=== PATIENT | female | born 1990 | race Caucasian/White ===

== ENCOUNTER → 2017-06-08 | Outpatient (CLI) | payer OTHER ==
[~2017-06-08] MED LIST: BCPILLS PO; CETI10TA84 PO; MISCCAP80 PO; MULT-506 PO
[2017-06-08 14:33] LABS: BASO % 0.4 %; BASO ABS # 0.03 K/uL (0-0.2); COMPLETE YES; EOS % 1.1 %; HEMATOCRIT 38.9 % (37-47); IG% 0.4 %; LYMPH % 24.8 %; LYMPH ABS # 1.76 K/uL (1.2-3.4); MEAN CELL VOLUME 85.1 fL (80-100); MEAN CORPUSCULAR HEMOGLOBIN 28.9 pg (25-34); MEAN CORPUSCULAR HGB CONC 33.9 g/dl (32-36); MEAN PLATELET VOLUME 10.6 fL (7.4-10.4); MONO % 8.2 %; NEUT % 65.1 %; PLATELET COUNT 281 K/uL (130-400); RED BLOOD COUNT 4.57 M/uL (4.2-5.4); WHITE BLOOD COUNT 7.11 K/uL (4.8-10.8)
[2017-06-08 15:06] LABS: ALT/SGPT 22 U/L (12-78); AST/SGOT 20 U/L (15-37); BLOOD UREA NITROGEN 20 mg/dl (7-18); BUN/CREATININE RATIO 18.2 (10-20); CARBON DIOXIDE 26 mmol/L (21-32); CHLORIDE 106 mmol/L (98-107); GLUCOSE 84 mg/dl (70-99); POTASSIUM 3.8 mmol/L (3.5-5.1); SODIUM 139 mmol/L (136-145)
[2017-06-08 15:08] LABS: ALKALINE PHOSPHATASE 58 U/L (45-117)
== END | disposition home or self-care (01) ==
LOC: C.LAB 13:15
PROVIDERS: ATTEND Nurse Practitioner Adult Health
DX: L50.8 Other urticaria (principal)

== ENCOUNTER 2017-11-09 15:01 | Emergency (ER) | payer OTHER ==
[~2017-11-09] VITALS: Ht 160 cm; Wt 61.2 kg
[2017-11-09 15:09] VITALS: TEMP 36.5; Ht 160 cm; Wt 61.2 kg
[2017-11-09] MEDS ORDERED: PRENTAB26 PO (15:42)
[2017-11-09] MEDS ORDERED: OMEG10007 PO (15:42)
[2017-11-09] MEDS ORDERED: CHOL100027 PO (15:42)
[2017-11-09] MEDS ORDERED: VENL225T27 PO (15:42)
--- NOTE | 2017-11-09 16:11 | DIAGNOSTIC IMAGING REPORT ---
R KNEE 3 VIEWS CLINICAL HISTORY: right knee pain medially COMPARISON: None. DISCUSSION: No fractures or dislocations are visualized. There are no erosive or destructive changes. IMPRESSION: Unremarkable conventional radiographic evaluation of the right knee. Electronically signed by: Ovidio Gupta M.D. 11/09/2017 4:10 PM Dictated Date/Time: 11/09/2017 4:09 PM
[2017-11-09 17:12] VITALS: BP 129/89; PULSE 76; O2SAT 98
--- NOTE | 2017-11-09 18:36 | EMERGENCY ROOM VISIT NOTE ---
ED Visit Note First contact with patient: 15:11 CHIEF COMPLAINT: knee pain HISTORY OF PRESENT ILLNESS: This 27-year-old female patient presents to the emergency department with complaints of ongoing right knee pain for the past several weeks. The patient is typically very active, and runs on a regular basis. She has had decrease in his activity because of her pain. She does not recall a distinct injury or trauma. Her discomfort is primarily along the medial aspect of the tibia. She has been wearing a brace with some improvement of symptoms. She will take Advil intermittently. The patient is employed at this facility, and standing long periods of time also exacerbates symptoms. She rates the current discomfort a 4/10. Activity worsens the pain. She has not had fever or chills. No calf tenderness. REVIEW OF SYSTEMS: A 6 system review of systems was completed with positives and pertinent negatives listed in the HPI. ALLERGIES: Doxycycline MEDICATIONS: No chronic medications PMH: Otherwise healthy SOCIAL HISTORY: Employed at this facility and lives locally PHYSICAL EXAM: Vital Signs: Reviewed Nurse's notes, vital signs stable. GENERAL : White female, no acute distress, but appears in pain, well-developed, well- nourished. MENTAL STATUS: Alert, oriented to person place and time, and cooperative. MUSCULOSKELETAL: The right knee is minimally swollen. There is no ecchymosis. There is no joint effusion present. The patient is tender along the medial joint. There is medial joint line tenderness. The patella does not subluxate, however there is crepitus. Range of motion is not limited. Strength of the quads and hamstrings is 5/5. Yazmin's is negative. Jaswinder's and Anterior Drawer tests are negative. There is no laxity with varus and valgus stressing. The foot and toes are warm and well-perfused. Dorsalis pedis pulse 2+. Sensation to pain and light touch is intact. Capillary refill less than 2 seconds. R KNEE 3 VIEWS CLINICAL HISTORY: right knee pain medially COMPARISON: None. DISCUSSION: No fractures or dislocations are visualized. There are no erosive or destructive changes. IMPRESSION: Unremarkable conventional radiographic evaluation of the right knee. EMERGENCY DEPARTMENT COURSE: Physical and history were performed. Nursing notes and EMR were reviewed. The patient has medial right knee pain with patellar crepitus. X-ray was obtained and does not show significant acute findings. 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 The patient and I had a lengthy discussion regarding options of care. She will use NSAIDs on a more regular basis and rest for the next few weeks. The patient may need to follow-up with orthopedics and will be given information to do so. She was otherwise invited back to ER with any new, worsening, or concerning symptoms. Problem List Medical Problems: (1) No Known Active Medical Problems Status: Chronic (2) Wrist surgery Status: Resolved Current/Historical Medications Scheduled Control Pills ( Control Pills), 1 TAB PO DAILY Cholecalciferol (Vitamin D 1000 Unit), 1,000 INTER.UNIT PO DAILY Fish Oil (Dickerson-3), 1 CAP PO DAILY Multivit/Min/Iron/Fol Ac/Pren ( Vitamin), 1 TAB PO DAILY Probiotic Product (Probiotic), 1 CAP PO DAILY Venlafaxine Hcl (Venlafaxine Hcl Er), 225 MG PO DAILY Allergies Coded Allergies: Doxycycline (Verified Allergy, Intermediate, nausea and vomitting, ) Vital Signs Date Time Temp Pulse Resp B/P (MAP) Pulse Ox O2 Delivery O2 Flow Rate FiO2 11/09/17 17:12 76 18 129/89 98 11/09/17 15:09 36.5 68 18 134/90 98 Room Air Departure Information Impression Primary Impression: Right knee pain Dispostion Home / Self-Care Condition GOOD Referrals Blanco Glynn D.O. Forms HOME CARE DOCUMENTATION FORM, IMPORTANT VISIT INFORMATION Patient Instructions My [facility] Additional Instructions You were seen and evaluated today on an emergency basis only. This is not a substitute for, or an effort to provide, complete comprehensive medical care. It is not possible to recognize and treat all injuries or illnesses in a single emergency department visit. For this reason it is recommended that you followup with Orthopedics, Dr Glynn office, in about 2 weeks for recheck of your condition. For baseline pain relief you may alternate ibuprofen and acetaminophen every 4 hours for pain control. Take 600 mg ibuprofen (Advil) and then 4 hours later take 1000 mg acetaminophen (Tylenol). Do not take more than 3000 mg acetaminophen in a single day. Continue wearing your brace for comfort. You are welcome to return to the emergency department anytime with new, worsening, or concerning symptoms.
== END 2017-11-09 17:13 | disposition home or self-care (01) ==
LOC: C.EDB 15:02 → C.EDD 17:13
DX: M25.561 Pain in right knee (principal)

== ENCOUNTER 2023-03-07 08:25 | Inpatient (IN) ==
[2023-03-07] MEDS ORDERED: LIDOCAINE 1% LOCAL 20 ML VIAL INFIL PRN (09:01)
[2023-03-07] MEDS ORDERED: OXYTOCIN 30 UNITS/500 ML BAG IV PRN ×2 (09:01)
--- NOTE | 2023-03-07 09:01 | History & Physical Report ---
Date of Service March 07, 2023 Assessment & Plan (1) Oligohydramnios in greer in third trimester: (2) Gestational diabetes: Plan 32 yo G1 at 37 2/7 wga admitted for IOL for oligohydramnios VSS Fetus cat 1 Labor - will start w/ mayberry/pit, 35 cc mayberry placed and pt tolerated well. Had previously discussed possibility of intolerance to labor but will certainly try for induction and they are aware Christianity - reviewed line by line products that pt accepts - refuses any whole components but does accept all fractions including albumin, immunoglobulin, clotting factors, hemoglobin, hemin, interferon. She accepts hemostatic agents and blood patch as long as using her own blood. She also has duralble power of global engineering manager and states that she would rather than accept transfusions of the whole blood, RBCs, white cells, platelets or plasma as a whole component and no one can override this statement. She is otherwise a full code. Copies of products she accepts and her POA are in chart. A1GDM - q4BG GBS neg epidural PRN Admission and Anticipated Discharge Date Admission Date: March 07, 2023 History of Present Illness Chief Complaint: IOL Primary Care Provider: Khushi Ritchie MD 32 yo G1 at 37 2/7 wga presents for IOL for oligohydramnios. +FM; denies ctx, LOF, VB PNI: Oligohydramnios A1GDM Christianity Past clinical veterinarian Hx: G1 irreg cycles denies hx STIs 10/2018 neg cotest Allergies Allergy/AdvReac Type Severity Reaction Status Date / Time doxycycline Allergy Intermediate nausea and Verified 03/06/23 13:36 vomitting Home Medications Medication Instructions Recorded Confirmed Type fluticasone propionate 50 intranasal 07/06/19 03/06/23 History mcg/actuation nasal spray,suspension cetirizine 10 mg capsule (Zyrtec) 10 mg PO DAILY #30 caps 08/05/20 03/06/23 Rx Saccharomyces boulardii [Daily PO 07/19/21 03/06/23 History Probiotic (S. boulardii)] cholecalciferol (vitamin D3) PO 07/19/21 03/06/23 History prenat.vits,patrick,mgm-luzp-gegye PO 07/19/21 03/06/23 History omega 7-ctf-rpl-fish oil 100 cap PO 03/13/22 03/06/23 History mg-160 mg-1,000 mg capsule (Fish Oil) bupropion HCl 150 mg 24 hr tablet, 150 mg PO QAM #30 tabs 10/09/22 03/06/23 Rx extended release (Wellbutrin XL) oseltamivir 75 mg capsule (Tamiflu) 75 mg PO BID 5 days #10 caps 10/24/22 03/06/23 Rx acetone (urine) test (Ketone Urine #50 ea 01/24/23 03/06/23 Rx Test strips) blood sugar diagnostic (OneTouch #150 ea 01/24/23 03/06/23 Rx Verio test strips) blood-glucose meter (OneTouch #1 ea 01/24/23 03/06/23 Rx Verio Reflect Meter) lancets 33 gauge (OneTouch Delica #150 ea 01/24/23 03/06/23 Rx Lancets) Patient History Medical History (Updated 03/02/23 @ 12:20 by Igor Alvarez MD) Eczema Encounter for insertion of ParaGard IUD Generalized anxiety disorder History of chicken pox Irritable bowel syndrome Shingles Urticaria, chronic Surgical History S/P wisdom tooth extraction S/P wrist surgery Family History Father Alcohol abuse Anxiety Eating disorder Depression Grandmother (Maternal) Schizophrenia Diabetes Thyroid disease Grandfather (Paternal) Myocardial infarction Grandmother (Paternal) Hypertension Thyroid disease Denies family history of Ovarian cancer Prostate cancer Breast cancer Colorectal cancer Social History (Updated 09/18/22 @ 08:12 by JOSÉ Marquez) Smoking Status: Never smoker Second Hand Exposure: No; Hx Alcohol Use: No Hx Substance Use: No Preferred Language: Arabic Visual Impairment: No Limitations Hearing Ability: Normal Legal Word Processor Required: No Beliefs That Will Affect Care: Baptist Baptist Beliefs: Synagogue marital status: marital status details: Rick Moses (36) [phone] Current Living Situation: Alone Current Living Situation Comment: lives with spouse, bird, dog, cat-spouse changing litter current occupational status: employed 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[employer] Childhood Exposure to Second-Hand Smoke: No Dental Care, Regularly: Yes Physical Activity Frequency: 3-4 Times per Week Seatbelt Use: always Sunscreen Use: Yes Physical Exam Genitourinary: OB Exam Abdomen: + vertex (confirmed by bsus) and + estimated weight (7-8) Manual OB Exam: + cervical dilation (1.5), + cervical effacement 50% and + station -2 OB Exam Monitor Tracing: + external FHT monitor used, + external uterine monitor used and + category I (125/mod/+accel/-decel) Results & Data Vital Signs (Past 12 Hours) Vital Signs Pulse BP 03/07/23 08:55 65 116/82 Laboratory Results OB Labs: Blood Type B Positive 08/17/22 Antibody Screen NEGATIVE 08/17/22 Hemoglobin 11.4 g/dl (12.0-16.0) L 01/12/23 Hematocrit 32.2 % (37.0-47.0) L 01/12/23 Mean Corpuscular Volume 87.4 fL (80.0-100.0) 08/17/22 Platelet Count 264 K/uL (130-400) 08/17/22 Rubella IgG Antibody Immune (Immune) 08/17/22 Rapid Plasma Reagin Nonreactive (Nonreactive) 08/17/22 Hepatitis B Surface Antigen. NON-REACTIVE (NON-REACTIVE) 08/17/22 Hepatitis C Antibody (EIA) NON-REACTIVE (NON-REACTIVE) 08/17/22 HIV (1&2) Ag and Ab Confirmation NON-REACTIVE (NON-REACTIVE) 08/17/22 Glucose 1 Hour 50 gm Load 159 mg/dl (70-130) H 01/12/23 Maternal Serum Alpha Fetoprotein 40.6 ng/mL 10/09/22 OB Optional Labs: Chlamydia trachomatis RNA Not Detected (NotDetected) 08/17/22 Neisseria gonorrhoeae RNA Not Detected (NotDetected) 08/17/22 Thyroid Stimulating Hormone (TSH) 1.820 uIu/ml (0.300-4.500) 05/19/21 Alpha Fetoprotein Triple Screen SEE NOTE 10/09/22 Labs Reviewed: extended panel cfdna-low risk--mln neg afp - sln GBS neg Diagnostic Findings 03/06 DVP 1.9 03/02 EFW 65%, ant plac Coding Level of Care Code None Diagnoses Oligohydramnios in greer in third trimester O41.03X0 Gestational diabetes O24.419
[2023-03-07 09:33] LABS: Hematocrit (blood only) 34.3 % (37.0-47.0); Hemoglobin 11.9 g/dl (12.0-16.0); Mean Corpuscular Hemoglobin 28.7 pg (25.0-34.0); Mean Corpuscular Hgb Conc 34.7 g/dL (32.0-36.0); Mean Corpuscular Volume 82.7 fL (80.0-100.0); Mean Platelet Volume 11.8 fL (9.4-12.4); Platelet Count 166 K/uL (130-400); RDW Coefficient of Variation 14.5 % (11.5-14.5); RDW Standard Deviation 42.6 fL (36.4-46.3); Red Blood Count 4.15 M/uL (4.20-5.40); White Blood Count 10.15 K/ul (4.8-10.8)
[2023-03-07] MEDS: LACTATED RINGER'S 1,000 ML IV PRN ×3 (10:20→21:45)
--- NOTE | 2023-03-07 17:06 | Labor Progress Brief Note ---
Date of Service March 07, 2023 Subjective mayberry bulb out Assessment & Plan (1) Oligohydramnios in greer in third trimester: (2) Gestational diabetes: Plan 32 yo G1 at 37 2/7 wga admitted for IOL for oligohydramnios VSS Fetus cat 1 Labor - mayberry out, now s/p arom to help progress. Discussed introitus does feel a little tight but pt is very tense as well so will need to re-eval after gets epidural Mosque - reviewed line by line products that pt accepts - refuses any whole components but does accept all fractions including albumin, immunoglobulin, clotting factors, hemoglobin, hemin, interferon. She accepts hemostatic agents and blood patch as long as using her own blood. She also has duralble power of document review attorney and states that she would rather than accept transfusions of the whole blood, RBCs, white cells, platelets or plasma as a whole component and no one can override this statement. She is otherwise a full code. Copies of products she accepts and her POA are in chart. A1GDM - q4BG GBS neg epidural PRN Admission and Anticipated Discharge Date Admission Date: March 07, 2023 Physical Exam Genitourinary: Manual OB Exam: + cervical dilation (3-4), + cervical effacement 50%, + station -2 and + amniotic fluid (arom) clear OB Exam Monitor Tracing: + external FHT monitor used, + external uterine monitor used (q3-4) and + category I (125/mod/+accel/-decel) Results & Data Vital Signs (Past 12 Hours) Vital Signs Temp Pulse Resp BP 03/07/23 12:45 66 125/86 03/07/23 11:38 73 135/87 03/07/23 10:34 69 129/89 03/07/23 08:55 65 116/82 03/07/23 09:06 98.4 F 18 Coding Level of Care Code None Diagnoses Oligohydramnios in greer in third trimester O41.03X0 Gestational diabetes O24.419
[2023-03-07] MEDS ORDERED: fentaNYL citrate PF 100 MCG/2 ML VIAL ONE ×2 (17:33→21:00)
[2023-03-07] MEDS ORDERED: BUPIVACAINE 0.25% PF 30 ML VIAL ONE (17:33)
[2023-03-07] MEDS ORDERED: ePHEDrine sulfate 50 MG/ML AMP ONE (17:33)
[2023-03-07] MEDS ORDERED: LIDOCAINE 2%/EPINEPHRINE 1:200,000 20 ML PF ONE ×2 (17:33→21:00)
[2023-03-07] MEDS ORDERED: SODIUM CHLORIDE 0.9% PF INJ 10 ML VIAL ONE (17:33)
[2023-03-07] MEDS ORDERED: fentaNYL 2MCG/ML ROPIVACAINE 1.25MG/ML 100 ML BAG EPI ONE (17:34)
[2023-03-07] MEDS ORDERED: ONDANSETRON INJ 2 MG/ML 2 ML VIAL IV PRN (17:35)
[2023-03-07] MEDS ORDERED: ePHEDrine sulfate 50 MG/ML AMP IV PRN (17:35)
[2023-03-07] MEDS ORDERED: NALOXONE HCL 0.4 MG/1 ML VIAL/CARP IV PRN (17:35)
[2023-03-07] MEDS ORDERED: NALBUPHINE HCL INJ 10 MG/ML AMP IV PRN (17:35)
[2023-03-07] MEDS ORDERED: diphenhydrAMINE 50 MG/ML VIAL IV PRN (17:35)
[2023-03-07] MEDS ORDERED: fentaNYL 2MCG/ML ROPIVACAINE 1.25MG/ML 100 ML BAG EPI PRN (17:35)
[2023-03-07] MEDS ORDERED: NALOXONE HCL 1 MG in SODIUM CHLORIDE 0.9% 1000ML 1,000 ML IV PRN (17:35)
--- NOTE | 2023-03-07 17:35 | Anesthesiology Consultation ---
Date of Service March 07, 2023 Assessment & Plan ASA ASA3 Proposed Anesthesia Anesthesia Type: Labor Epidural Risk / Benefits Reviewed With: PT / POA / Parent / Guardian, Accepts Plan and Informed Consent Obtained History Height/Weight Height: 5 ft 3 in Weight: 82.639 kg Allergies Allergy/AdvReac Type Severity Reaction Status Date / Time doxycycline Allergy Intermediate nausea and Verified 03/07/23 15:07 vomitting Medications Home Medications Medication Instructions Recorded Confirmed Last Taken fluticasone propionate 50 2 spray intranasal DAILY 07/06/19 03/07/23 Unknown mcg/actuation nasal spray,suspension cetirizine 10 mg capsule (Zyrtec) 10 mg PO DAILY #30 caps 08/05/20 03/07/23 Unknown Saccharomyces boulardii [Daily 1 tab PO DAILY 07/19/21 03/07/23 Unknown Probiotic (S. boulardii)] cholecalciferol (vitamin D3) 1 tab PO DAILY 07/19/21 03/07/23 Unknown omega 6-bqd-iqo-fish oil 100 1 cap PO DAILY 03/13/22 03/07/23 Unknown mg-160 mg-1,000 mg capsule (Fish Oil) bupropion HCl 150 mg 24 hr tablet, 150 mg PO QAM #30 tabs 10/09/22 03/07/23 03/07/23 extended release (Wellbutrin XL) acetone (urine) test (Ketone Urine #50 ea 01/24/23 03/06/23 Unknown Test strips) blood sugar diagnostic (OneTouch #150 ea 01/24/23 03/06/23 Unknown Verio test strips) blood-glucose meter (OneTouch #1 ea 01/24/23 03/06/23 Unknown Verio Reflect Meter) lancets 33 gauge (OneTouch Delica #150 ea 01/24/23 03/06/23 Unknown Lancets) prenat.vits,patrick,iei-ckxv-dnlwq 1 tab PO DAILY 03/07/23 03/07/23 Unknown Active Medications Generic Name Dose Route Start Last Admin Trade Name Freq PRN Reason Stop Dose Admin Lactated Ringer's 1,000 mls @ 125 mls/hr 03/07/23 09:01 03/07/23 17:59 Lr IV 03/09/23 09:00 125 mls/hr .Q8H PRN Administration L&D Protocol Protocol Oxytocin 30 units in 500 mls @ 12 mls/hr 03/07/23 09:01 03/07/23 16:29 Pitocin IV 03/09/23 09:00 0.72 units/hr .Q24H PRN 12 mls/hr Labor Induction/Augmentation Titration Protocol 0.72 UNITS/HR Past Medical History Medical History Eczema Encounter for insertion of ParaGard IUD Generalized anxiety disorder History of chicken pox Irritable bowel syndrome Shingles Urticaria, chronic Exercise / Class Metabolic Activity II 4-5 Yardwork/Stairs/Walk up hill Past Family History Family History Father Alcohol abuse Anxiety Eating disorder Depression Grandmother (Maternal) Schizophrenia Diabetes Thyroid disease Grandfather (Paternal) , age 45 Myocardial infarction Grandmother (Paternal) Hypertension Thyroid disease Denies family history of Ovarian cancer Prostate cancer Breast cancer Colorectal cancer Past Surgical History Surgical History S/P wisdom tooth extraction S/P wrist surgery aspiration of ganglion cyst Past Anesthesia History No Hx of Anesthesia Complications and No Family Hx of Anesthesia Complications History of PONV No Hx of PONV and No Hx of Motion Sickness Social History Smoking Status: Never smoker Hx Alcohol Use: No Hx Substance Use: No Review of Systems denies fever/cough/ colds/ chest pain/ SOB/ JOSH denies JOSH Physical Exam Vital Signs Last Vital Signs Temp 36.9 C 03/07/23 09:06 Pulse 106 H 03/07/23 18:08 Resp 18 03/07/23 09:06 BP 131/71 03/07/23 18:08 Pulse Ox 100 03/07/23 18:05 ENMT Mouth: no TMJ abnormality and no dentition abnormality Thyromental Distance: > or= 3.5 Finger Breadths Mallampati Class: II Neck neck extension not limited Respiratory normal respiratory effort; no respiratory distress Auscultation: lungs clear to auscultation bilaterally Cardiovascular Rate/Rhythm: regular rate and regular rhythm Neurologic moves all extremities Psychiatric Orientation: alert and oriented x 3 Testing Laboratory Results 03/07/23 09:13 03/07/23 03/07/23 16:28 12:52 POC Glucose 78 85
--- NOTE | 2023-03-07 19:52 | Labor Progress Brief Note ---
Date of Service March 07, 2023 Subjective comfortable w/ epidural Assessment & Plan (1) Oligohydramnios in greer in third trimester: (2) Gestational diabetes: Plan 32 yo G1 at 37 2/7 wga admitted for IOL for oligohydramnios VSS Fetus cat 1 Labor - progress noted, still some residual tightness compared to earlier but does seem better. Will continue to monitor Caodaism - reviewed line by line products that pt accepts - refuses any whole components but does accept all fractions including albumin, immunoglobulin, clotting factors, hemoglobin, hemin, interferon. She accepts hemostatic agents and blood patch as long as using her own blood. She also has duralble power of beef tagger and states that she would rather than accept transfusions of the whole blood, RBCs, white cells, platelets or plasma as a whole component and no one can override this statement. She is otherwise a full code. Copies of products she accepts and her POA are in chart. A1GDM - q4BG GBS neg epidural in place Admission and Anticipated Discharge Date Admission Date: March 07, 2023 Physical Exam Genitourinary: Manual OB Exam: + cervical dilation (4-5), + cervical effacement 70% and + station -1 OB Exam Monitor Tracing: + external FHT monitor used, + external uterine monitor used (q3-4) and + category II (120/mod/+accel/intermit decel) Results & Data Vital Signs (Past 12 Hours) Vital Signs Temp Pulse Resp BP Pulse Ox 03/07/23 19:45 97 H 100 03/07/23 19:40 84 100 03/07/23 19:35 85 100 03/07/23 18:03 18 03/07/23 18:03 18 03/07/23 17:00 98.6 F 03/07/23 19:30 67 100 03/07/23 19:29 60 105/68 03/07/23 19:25 58 L 100 03/07/23 19:20 62 100 03/07/23 19:15 70 99 03/07/23 19:14 66 115/64 03/07/23 19:10 64 100 03/07/23 19:05 65 100 03/07/23 19:00 98.6 F 73 18 100 03/07/23 18:58 65 117/70 03/07/23 18:55 75 100 03/07/23 18:56 73 92 03/07/23 18:50 68 99 03/07/23 18:45 82 18 98 03/07/23 18:40 65 99 03/07/23 18:35 85 100 03/07/23 18:30 87 18 100 03/07/23 18:29 108 H 134/66 03/07/23 18:25 120 H 99 03/07/23 18:20 75 100 03/07/23 18:15 82 18 100 03/07/23 18:12 106 H 135/75 03/07/23 18:10 99 03/07/23 18:10 88 03/07/23 18:10 74 135/60 03/07/23 18:08 106 H 131/71 03/07/23 18:06 105 H 130/62 03/07/23 18:05 104 H 100 03/07/23 18:04 112 H 149/83 H 03/07/23 18:02 88 137/79 03/07/23 18:00 91 H 100 03/07/23 17:55 89 100 03/07/23 17:50 112 H 100 03/07/23 12:45 66 125/86 03/07/23 11:38 73 135/87 03/07/23 10:34 69 129/89 03/07/23 08:55 65 116/82 03/07/23 09:06 98.4 F 18 Coding Level of Care Code None Diagnoses Oligohydramnios in greer in third trimester O41.03X0 Gestational diabetes O24.419
[2023-03-07] MEDS ORDERED: ROPIVACAINE 0.5% 5 MG/ML 30 ML VIAL ONE (21:00)
--- NOTE | 2023-03-07 21:13 | Anesthesia Procedure Note ---
Date of Service March 07, 2023 Anesthesia Epidural Re-Dose Vital Signs Temp Pulse Resp BP Pulse Ox 37.0 C 80 18 121/70 99 03/07/23 19:00 03/07/23 21:10 03/07/23 19:30 03/07/23 21:06 03/07/23 21:10 Notes Dilatation (cm): 9.5 Effacement (%): 100 Called by nursing to evaluate epidural as the patient is having increased pain. The epidural was re-dosed with the following medications (all medications via epidural route) after negative aspiration of the epidural catheter for CSF/HEME. 2ml 2% lidocaine with epi, 3mL ropivacaine 0.5% and 100 mcg fetanyl via epidural After Epidural Re-Dose Mental Status: alert / awake / arousable Pain: improving with treatment Airway Patency, RR, SpO2: stable & adequate BP & HR: stable & adequate
[2023-03-07] MEDS ORDERED: NURSING L&D Epidural Breakthrough Pain Update ONE (21:53)
[2023-03-08] MEDS ORDERED: cefOXitin 2,000 MG in DEXTROSE 5% 50 ML IV STA (04:52)
[2023-03-08 05:18] LABS: Cord Venous Blood HCO3 17 mmol/L (18.4-26.8); Cord Venous Blood PCO2 59 mmHg (30.4-57.2); Cord Venous Blood PO2 21 mmHg (14.1-43.3); Cord Venous Blood pH 7.06 (7.20-7.44); O2 Saturation Cord Venous Bld < 60.0 % (<68)
--- NOTE | 2023-03-08 05:20 | Delivery Summary ---
Vaginal Delivery Summary Date of Service March 08, 2023 Vaginal Delivery Summary and 3rd Degree LAC PREOPERATIVE DIAGNOSIS: 1. Single intrauerine at 37 3/7 wga 2. Oligohydramnios 3. A1GDM POSTOPERATIVE DIAGNOSIS: 1. Single intrauerine at 37 3/7 wga 2. Oligohydramnios 3. A1GDM 3. Delivered PROCEDURE: 1. Normal spontaneous vaginal delivery. SURGEON: Emily Bravo MD ANESTHESIA: Epidural. ESTIMATED BLOOD LOSS: 300 mL FLUIDS: Continuous LR. URINE OUTPUT: None. COMPLICATIONS: None. CONDITION: Stable. INDICATIONS: 32 yo G1 at 37 3/7 wga presented for IOL due to oligohydramnios. Induction was begun with mayberry bulb and pitocin. Following mayberry bulb expulsion, she underwent AROM and shortly after received epidural for pain control. She continued to progress to complete and desired to push. FINDINGS: A viable male infant, weight pending with Apgars of 3, 6 and 8 at 1, 5 and 10 minutes respectively. SPECIMEN: Cord blood, cord segment, placenta OPERATIVE REPORT: The patient progressed to 10 cm, 100% effaced and +2 station, pushed over intact perineum with anesthesia to deliver a viable male infant, weight and Apgars as above. Head of delivered in direct OP position. No nuchal cord was present but however compound hand was noted. Body and shoulders were delivered without difficulty. was delivered to maternal abdomen and nursing staff. Delayed cord clamping was deferred due to not being as vigorous. Cord was clamped and cut. Cord segment and blood were obtained. Placenta delivered spontaneously intact with 3-vessel cord. IV oxytocin and fundal massage were given for excellent hemostasis. Vagina, cervix, perineum, and placenta were inspected. A 3a laceration was noted and repaired in the usual fashion with reapproximation of the EAS after rectal exam was performed confirming no involvement of the rectum. Remainder of tear was repaired in the usual fashion, there was excellent hemostasis. Cefoxitin was administered for prophylaxis. Sponge and needle counts correct x2. No sponges were left behind. Mother and stable in immediate period. [facility] [place] Vaginal Delivery Charge Vaginal Delivery Codes: 85815 global code for the antepartum, delivery, and post- Delivery Type Details: and 3rd Degree LAC
[2023-03-08] MEDS ORDERED: OXYTOCIN 30 UNITS/500 ML BAG IV PRN (05:22)
[2023-03-08] MEDS ORDERED: BENZOCAINE 20% AER SPR 82.5 GM CAN EXT PRN (05:22)
[2023-03-08] MEDS ORDERED: DIPHTHERIA/TETANUS/PERTUSSIS 0.5mL SYR/VIAL (Age 7+yrs) IM ONE (05:22)
[2023-03-08] MEDS ORDERED: HYDROCORTISONE ACETATE 25 MG SUPP PR PRN (05:22)
[2023-03-08] MEDS: IBUPROFEN 600 MG TAB PO PRN ×5 (05:29→23:37)
--- NOTE | 2023-03-08 05:45 | Anesthesia Procedure Note ---
Date of Service March 08, 2023 Anesthesia Post Epidural Note Vital Signs Vital Signs: Temp Pulse Resp BP Pulse Ox 36.9 C 95 H 18 127/77 94 03/08/23 05:05 03/08/23 05:35 03/08/23 05:35 03/08/23 05:35 03/08/23 05:00 Pain Intensity Lower Abdomen: Pain Intensity: 4 Notes Mental Status: alert / awake / arousable and participated in evaluation Nausea / Vomiting: adequately controlled Pain: adequately controlled Airway Patency, RR, SpO2: stable & adequate BP & HR: stable & adequate Hydration State: stable & adequate Neuraxial Anesthesia: was administered and sensory block resolved Anesthetic Complications: no major complications apparent and Pt Satisfied with anesthetic care Epidural: Removed without complications and With tip intact
[2023-03-08 06:01] LABS: Base Excess Cord Arterial Bld -19.9 mEq/L (-9-1.8); CO2 Cord Arterial Blood 90 mmHg (39.1-73.5); HCO3 Cord Arterial Blood 15 mmol/L (19.7-28.5); Oxygen Sat Cord Arterial Blood < 60.0 % (<60); PO2 Cord Arterial Blood 9 mmHg (4.1-31.7); pH Cord Arterial Blood < 7.00 (7.1-7.38)
[2023-03-08] MEDS: FLUTICASONE PROPIONATE NA SPR 16 GM BTL SCH (07:16)
[2023-03-08] MEDS: buPROPion XL 150 MG TABCR PO SCH (07:16)
[2023-03-08] MEDS: ACETAMINOPHEN 325 MG TAB PO PRN ×3 (08:02→23:37)
[2023-03-08] MEDS: PRENATAL VITAMIN 1 TAB PO SCH (08:02)
[2023-03-08] MEDS: FERROUS SULFATE 325 MG TAB PO SCH (08:02)
[2023-03-08] MEDS: DOCUSATE SODIUM 100 MG CAP PO SCH ×2 (08:02→20:50)
[2023-03-09] MEDS: IBUPROFEN 600 MG TAB PO PRN (04:52)
--- NOTE | 2023-03-09 06:19 | Obstetrical Progress Note ---
Date of Service March 09, 2023 Assessment & Plan (1) Oligohydramnios in greer in third trimester: (2) Gestational diabetes: (3) Supervision of normal first : Chyna Lang is a 32 y/o female who is PPD #1 following delivery at 37 3/7 weeks. -Meeting all milestones -Vitals reviewed and WNL -B+/GBS negative/Rubella immune -Follow up in 6 weeks for appointment -Continue routine care Admission and Anticipated Discharge Date Admission Date: March 07, 2023 Supervising Physician Co-Signing Physician Notes Resident Physician Supervision Note: I interviewed and examined the patient. Discussed with Dr. Cruz and agree with findings and plan as documented in the note. Any exceptions or clarifications are listed here: doing well, desires to stay until tomorrow. Documented By: Olivia Ferro DO Subjective Precious is a 32 y/o female who is PPD #1 following delivery at 37 3/7 weeks. Her was complicated by oligohydramnios and GDM She reports feeling well overall this morning. Notes abdominal cramping and diffuse body soreness, inquires about other options for anti-inflammatories. Notes some burning with urination at site of stitches. Tolerating meals overnight and able to ambulate some. Has some persistent lochia with some improvement this morning. Currently breast feeding. Review of Systems Constitutional: no fever, no chills and no sweats Respiratory: no cough, no dyspnea and no wheezing Cardiovascular: no chest pain, no palpitations and no calf pain Genitourinary: no dysuria Neurologic: no headache(s) Physical Exam Constitutional: WD/WN, vitals as above no acute distress Respiratory: no respiratory distress Auscultation: lungs clear to auscultation bilaterally; no rales, no rhonchi and no wheezes Cardiovascular: RRR, no murmur, no edema Extremities: no calf tenderness and no edema Negative Dale's sign bilaterally. Gastrointestinal (Abdomen): Inspection/Auscultation: normal bowel sounds Genitourinary: Uterine fundus firm, palpable below the umbilicus. Results & Data Vital Signs (Past 12 Hours) Vital Signs Temp Pulse Resp BP Pulse Ox O2 Del Method 03/09/23 04:40 36.9 C 74 18 121/69 98 Room Air 03/08/23 23:32 36.7 C 78 18 117/73 98 Room Air 03/08/23 19:40 36.8 C 69 18 131/73 98 Room Air Resident Activity Tracking Resident Involvement: Resident Care Provided Care Provided: OB Delivery
[2023-03-09] MEDS: PRENATAL VITAMIN 1 TAB PO SCH (08:33)
[2023-03-09] MEDS: FERROUS SULFATE 325 MG TAB PO SCH (08:33)
[2023-03-09] MEDS: DOCUSATE SODIUM 100 MG CAP PO SCH ×2 (08:33→20:51)
[2023-03-09] MEDS: FLUTICASONE PROPIONATE NA SPR 16 GM BTL SCH (08:35)
[2023-03-09] MEDS: ACETAMINOPHEN 325 MG TAB PO PRN ×2 (08:55→23:31)
[2023-03-09] MEDS: buPROPion XL 150 MG TABCR PO SCH (08:55)
[2023-03-09] MEDS: IBUPROFEN 800 MG TAB PO PRN ×3 (10:03→20:51)
[2023-03-09] MEDS ORDERED: bisacodyL 5 MG TABEC PO SCH (20:00)
[2023-03-10] MEDS ORDERED: bisacodyL 10 MG SUPP PR PRN
[2023-03-10] MEDS: IBUPROFEN 800 MG TAB PO PRN ×3 (04:10→20:01)
--- NOTE | 2023-03-10 06:23 | Obstetrical Progress Note ---
Date of Service March 10, 2023 Assessment & Plan (1) Oligohydramnios in greer in third trimester: (2) Gestational diabetes: (3) Supervision of normal first : Chyna Lang is a 32 y/o female who is PPD #2 following delivery at 37 3/7 weeks. -Meeting all milestones -Vitals reviewed and WNL -B+/GBS negative/Rubella immune -Follow up in 6 weeks for appointment -Continue routine care -Anticipate discharge to [facility] [place] later today Admission and Anticipated Discharge Date Admission Date: March 07, 2023 Supervising Physician Co-Signing Physician Notes Resident Physician Supervision Note: I interviewed and examined the patient. Discussed with Dr. Cruz and agree with findings and plan as documented in the note. Any exceptions or clarifications are listed here: Doing well. Plan d/c later today. Baby still getting blood sugar checks. Documented By: Cortney Rosario MD, FACOG Subjective Precious is a 32 y/o female who is PPD #2 following delivery at 37 3/7 weeks. Her was complicated by oligohydramnios and GDM She reports feeling well overall this morning. Notes abdominal cramping and diffuse body soreness have both improved since increasing the Motrin. Voiding without issue. Tolerating meals overnight and able to ambulate some. Has some persistent lochia with some improvement this morning. Currently breast feeding. Review of Systems Constitutional: no fever, no chills and no sweats Respiratory: no cough, no dyspnea and no wheezing Cardiovascular: no chest pain, no palpitations and no calf pain Genitourinary: no dysuria Neurologic: no headache(s) Physical Exam Constitutional: WD/WN, vitals as above no acute distress Respiratory: no respiratory distress Auscultation: lungs clear to auscultation bilaterally; no rales, no rhonchi and no wheezes Cardiovascular: RRR, no murmur, no edema Extremities: no calf tenderness and no edema Gastrointestinal (Abdomen): Inspection/Auscultation: normal bowel sounds Genitourinary: Uterine fundus firm to palpation below umbilicus. Results & Data Vital Signs (Past 12 Hours) Vital Signs Temp Pulse Resp BP Pulse Ox O2 Del Method 03/09/23 23:25 36.8 C 77 18 110/62 98 Room Air 03/09/23 19:00 36.7 C 69 20 120/78 98 Room Air Resident Activity Tracking Resident Involvement: Resident Care Provided Care Provided: OB Delivery
[2023-03-10] MEDS: FERROUS SULFATE 325 MG TAB PO SCH ×2 (08:00→09:02)
[2023-03-10] MEDS: PRENATAL VITAMIN 1 TAB PO SCH (09:01)
[2023-03-10] MEDS: DOCUSATE SODIUM 100 MG CAP PO SCH ×2 (09:02→20:02)
[2023-03-10] MEDS: buPROPion XL 150 MG TABCR PO SCH (09:02)
[2023-03-10] MEDS: ACETAMINOPHEN 325 MG TAB PO PRN ×2 (09:03→23:26)
[2023-03-10] MEDS: FLUTICASONE PROPIONATE NA SPR 16 GM BTL SCH (09:06)
== END 2023-03-10 23:33 | disposition home or self-care (01) | DRG 768 ==
LOC: 4S1 08:25 → 4E2 03-08 07:56